=== PATIENT | male | born 1985 | race Caucasian/White ===

== ENCOUNTER 2017-05-12 12:14 | Inpatient (IN) | payer BC, OTHER ==
[~2017-05-12] VITALS: Ht 193 cm; Wt 99.8 kg
[2017-05-12 12:45] VITALS: BP 134/76
[2017-05-12] MEDS ORDERED: MAGNESIUM HYDROXIDE 30 ML LIQUID UDC PO PRN (13:00)
[2017-05-12] MEDS ORDERED: ACETAMINOPHEN 325 MG TABLET PO PRN (13:00)
[2017-05-12] MEDS ORDERED: LOPERAMIDE HCL 2 MG CAPSULE PO PRN ×2 (13:00)
[2017-05-12] MEDS ORDERED: NICOTINE POLACRILEX 4 MG GUM-PK OF TEN BC PRN (13:00)
[2017-05-12] MEDS ORDERED: BUPRENORPHINE HCL 2 MG TAB.SUBL SL PRN (13:00)
[2017-05-12] MEDS ORDERED: MIRALAX 17 GM POWD.PACK PO PRN (13:00)
[2017-05-12] MEDS ORDERED: NICOTINE 14 MG/24HR PATCH TD PRN (13:00)
[2017-05-12] MEDS ORDERED: DICYCLOMINE HCL 20 MG TABLET PO PRN (13:00)
[2017-05-12] MEDS ORDERED: DOCUSATE SODIUM 250 MG CAPSULE PO PRN (13:00)
[2017-05-12] MEDS ORDERED: MAG HYDROX/AL HYDROX/SIMETH 30 ML LIQUID UDC PO PRN (13:00)
[2017-05-12] MEDS ORDERED: ONDANSETRON ODT 4 MG TAB.RAPDIS SL PRN (13:00)
[2017-05-12] MEDS ORDERED: ONDANSETRON 4 MG/2 ML VIAL IM PRN (13:00)
[2017-05-12 14:26] LABS: *AMPHETAMINE, URINE NEGATIVE (NEGATIVE); *BARBITURATE, URINE NEGATIVE (NEGATIVE); *CANNABINOID, URINE NEGATIVE (NEGATIVE); *COCCAINE, URINE NEGATIVE (NEGATIVE); *OPIATE, URINE POSITIVE (NEGATIVE); *PHENCYCLIDINE SCREEN,URINE NEGATIVE (NEGATIVE)
[2017-05-12 15:15] LABS: ALANINE AMINOTRANSFERASE 30 U/L (16-63); ALKALINE PHOSPHATASE 61 U/L (50-136); ASPARTATE AMINOTRANSFERASE 19 U/L (15-37); BILIRUBIN,TOTAL 0.5 mg/dL (0.2-1.0); CARBON DIOXIDE 31 mmol/L (21-32); CHLORIDE 100 mmol/L (98-107); CREATININE 0.7 mg/dL (0.6-1.3); GLUCOSE 93 mg/dL (74-106); POTASSIUM 4.2 mmol/L (3.5-5.1); TOTAL PROTEIN, SERUM 7.3 g/dL (6.4-8.2); UREA NITROGEN, BLOOD 9 mg/dL (7-18)
[2017-05-12 15:23] LABS: BASOPHILS % (AUTO) 0.4 % (0.0-2.0); EOSINOPHILS # (AUTO) 0.2 K/uL (0.0-0.7); EOSINOPHILS % (AUTO) 2.9 % (0.0-7.0); ETHANOL < 3 MG/DL (0-0); HEMATOCRIT 40.4 % (36.7-47.1); HEMOGLOBIN 13.7 g/dL (12.5-16.3); LYMPHOCYTES # (AUTO) 1.5 K/uL (20.0-40.0); LYMPHOCYTES % (AUTO) 18.4 % (20.5-51.5); MEAN CORPUSCULAR HEMOGLOBIN 30.7 uug (23.8-33.4); MEAN CORPUSCULAR HGB CONC 34 g/dL (32.5-36.3); MEAN CORPUSCULAR VOLUME 90.3 fL (73.0-96.2); MONOCYTES # (AUTO) 0.9 K/uL (2.0-10.0); MONOCYTES % (AUTO) 10.5 % (0.0-11.0); NEUTROPHILS # (AUTO) 5.7 K/uL (1.8-8.9); NEUTROPHILS % (AUTO) 67.8 % (38.5-71.5); PLATELET COUNT (AUTO) 221 K/uL (152-348); RED BLOOD CELL COUNT(AUTO) 4.47 MIL/uL (4.06-5.63); WHITE BLOOD COUNT (AUTO) 8.3 K/uL (3.6-10.2)
[2017-05-12 16:00] VITALS: BP 116/67
[2017-05-12 20:00] VITALS: BP 127/73
[2017-05-12] MEDS: METHOCARBAMOL 750 MG TABLET PO PRN (20:35)
[2017-05-12] MEDS: HYDROXYZINE PAMOATE 25 MG CAPSULE PO PRN (20:35)
[2017-05-12] MEDS: CLONIDINE HCL 0.1 MG TABLET PO PRN (20:35)
[2017-05-13] VITALS: BP 114/58
[2017-05-13] MEDS: IBUPROFEN 600 MG TABLET PO PRN ×2 (01:49→22:39)
[2017-05-13] MEDS: LORAZEPAM 1 MG TABLET PO PRN ×3 (01:49→13:08)
[2017-05-13 04:00] VITALS: BP 93/49
[2017-05-13 08:00] VITALS: BP 113/80
[2017-05-13] MEDS: BUPRENORPHINE HCL 2 MG TAB.SUBL SL SCH ×3 (08:55→21:33)
[2017-05-13] MEDS ORDERED: TUBERCULIN,PURIF.PROT.DERIV. 5 TU/0.1 ML TEST ID ONE (09:00)
[2017-05-13 11:06] LABS: HEPATITIS B SURFACE AG Negative (Negative)
[2017-05-13 12:00] VITALS: BP 133/71
[2017-05-13] MEDS: GABAPENTIN 300 MG CAPSULE PO SCH ×2 (14:34→21:34)
[2017-05-13 16:00] VITALS: BP 114/64
[2017-05-13 20:00] VITALS: BP 138/79
[2017-05-14] VITALS: BP 135/81
[2017-05-14 04:00] VITALS: BP 133/76
[2017-05-14 08:00] VITALS: BP 124/71
[2017-05-14] MEDS: GABAPENTIN 300 MG CAPSULE PO SCH ×2 (08:59→14:27)
[2017-05-14] MEDS ORDERED: BUPRENORPHINE HCL 2 MG TAB.SUBL SL SCH (09:00)
[2017-05-14] MEDS: HYDROXYZINE PAMOATE 25 MG CAPSULE PO PRN (09:07)
[2017-05-14] MEDS: METHOCARBAMOL 750 MG TABLET PO PRN ×2 (09:07→21:45)
[2017-05-14 12:00] VITALS: BP 120/73
[2017-05-14] MEDS ORDERED: LORAZEPAM 1 MG TABLET PO PRN (12:15)
[2017-05-14] MEDS ORDERED: LORAZEPAM 1 MG TABLET PO SCH (12:30)
[2017-05-14] MEDS: CLONIDINE HCL 0.1 MG TABLET PO PRN ×2 (12:36→21:45)
[2017-05-14] MEDS: DICYCLOMINE HCL 20 MG TABLET PO SCH ×2 (14:26→21:45)
[2017-05-14] MEDS: BUPRENORPHINE HCL 2 MG TAB.SUBL SL SCH ×2 (14:27→21:44)
[2017-05-14 16:00] VITALS: BP 113/61
[2017-05-14 20:00] VITALS: BP 123/76
[2017-05-14] MEDS ORDERED: GABAPENTIN 300 MG CAPSULE PO SCH (21:00)
[2017-05-15 08:00] VITALS: BP 106/64
[2017-05-15] MEDS: GABAPENTIN 300 MG CAPSULE PO SCH ×3 (08:43→20:13)
[2017-05-15] MEDS: DICYCLOMINE HCL 20 MG TABLET PO SCH ×3 (08:43→20:13)
[2017-05-15] MEDS: BUPRENORPHINE HCL 2 MG TAB.SUBL SL SCH ×3 (08:43→20:14)
[2017-05-15 12:00] VITALS: BP 123/66
[2017-05-15] MEDS: CLONIDINE HCL 0.1 MG TABLET PO PRN (12:57)
[2017-05-15 16:00] VITALS: BP 116/68
[2017-05-15 20:00] VITALS: BP 110/70
[2017-05-15] MEDS: IBUPROFEN 600 MG TABLET PO PRN (20:13)
[2017-05-15] MEDS: CLONIDINE HCL 0.1 MG TABLET PO SCH (20:13)
[2017-05-15] MEDS ORDERED: KETOROLAC TROMETHAMINE 30 MG INJ IM PRN (20:45)
[2017-05-16] VITALS: BP 110/68
[2017-05-16 04:00] VITALS: BP 109/62
[2017-05-16 08:00] VITALS: BP 124/57
[2017-05-16] MEDS: GABAPENTIN 300 MG CAPSULE PO SCH ×3 (08:45→22:05)
[2017-05-16] MEDS: CLONIDINE HCL 0.1 MG TABLET PO SCH ×2 (08:45→22:05)
[2017-05-16] MEDS: DICYCLOMINE HCL 20 MG TABLET PO SCH ×3 (08:45→22:04)
[2017-05-16] MEDS ORDERED: BUPRENORPHINE HCL 2 MG TAB.SUBL SL SCH (09:00)
[2017-05-16 12:00] VITALS: BP 125/89
[2017-05-16 16:00] VITALS: BP 133/73
[2017-05-16] MEDS ORDERED: DICY20TA28 PO (19:46)
[2017-05-16] MEDS ORDERED: CLON0.1T14 PO (19:46)
[2017-05-16] MEDS ORDERED: IBUP-1955 PO (19:46)
[2017-05-16] MEDS ORDERED: DOCU250C14 PO (19:46)
[2017-05-16] MEDS ORDERED: HYDR-3895 PO (19:46)
[2017-05-16] MEDS ORDERED: GABA-534 PO (19:46)
[2017-05-16] MEDS ORDERED: METH-406 PO (19:46)
[2017-05-16] MEDS ORDERED: ONDA4TAB11 SL (19:46)
[2017-05-16 20:00] VITALS: BP 150/82
[2017-05-16] MEDS: HYDROXYZINE PAMOATE 25 MG CAPSULE PO PRN (22:05)
[2017-05-17] VITALS: BP 132/83
[2017-05-17 04:00] VITALS: BP 130/77
[2017-05-17 08:00] VITALS: BP 127/79
[2017-05-17 08:36] VITALS: BP 127/79
[2017-05-17] MEDS: DICYCLOMINE HCL 20 MG TABLET PO SCH (08:36)
[2017-05-17] MEDS: GABAPENTIN 300 MG CAPSULE PO SCH (08:36)
[2017-05-17] MEDS: CLONIDINE HCL 0.1 MG TABLET PO SCH (08:36)
== END 2017-05-17 09:48 | disposition home or self-care (01) | DRG 895 ==
LOC: SRC 12:14
PROVIDERS: ADMIT Internal Medicine; ATTEND Internal Medicine
PROC: HZ2ZZZZ Detoxification Services for Substance Abuse Treatment (ICD-10-PCS; principal; 2017-05-12)
PROC: HZ41ZZZ Group Counseling for Substance Abuse Treatment, Behavioral (ICD-10-PCS; 2017-05-13)
PROC: HZ31ZZZ Individual Counseling for Substance Abuse Treatment, Behavioral (ICD-10-PCS; 2017-05-15)
DX: F11.23 Opioid dependence with withdrawal (principal); F12.10 Cannabis abuse, uncomplicated; F17.220 Nicotine dependence, chewing tobacco, uncomplicated; F90.9 Attention-deficit hyperactivity disorder, unspecified type; Z82.49 Family history of ischemic heart disease and other diseases of the circulatory system; Z81.1 Family history of alcohol abuse and dependence; F32.9 Major depressive disorder, single episode, unspecified; F41.9 Anxiety disorder, unspecified
CPT/HCPCS: 36415; 70030-TC; 80307; 80361; 83735; 85025; 86580; 86592; 86705; 86803; 87340; 87806; A4663; G0480